=== PATIENT | female | born 1940 | race Caucasian/White ===

== ENCOUNTER 2018-09-21 14:51 | Emergency (ER) | payer OTHER, MEDICAID ==
[~2018-09-21] VITALS: Ht 152.4 cm; Wt 63.5 kg
[~2018-09-21 14:51] MED LIST: AMLO5TAB4 PO; BETA45CR3 TP; CLOP300T2 PO; DESV100T16 PO; DONE10TA44 PO; EZET10TA27 PO; LOSA100T3 PO; METO25TA3 PO; SITA100T11 PO
[2018-09-21 15:00] VITALS: BP_SYST 137
[2018-09-21] MEDS ORDERED: NACL 0.9% 1,000 ML IV ONE (15:23)
[2018-09-21 16:01] LABS: BLOOD, URINE 3+ (NEGATIVE); CLARITY/URINE SL CLOUDY (CLEAR); COLOR,URINE RED (YELLOW); GLUCOSE,URINE NEGATIVE (NEGATIVE); KETONES,URINE NEGATIVE (NEGATIVE); LEUKOCYTE ESTERASE ,URINE 3+ (NEGATIVE); NITRITE, URINE POSITIVE (NEGATIVE); PROTEIN URINE 2+ (NEGATIVE); UROBILINOGEN,URINE 0.2 (0.2-1.0)
[2018-09-21 16:04] LABS: BILIRUBIN,URINE NEGATIVE (NEGATIVE)
[2018-09-21 16:07] LABS: BACTERIA,URINE MANY /HPF (None Seen); MUCUS,URINE None Seen /LPF (None Seen); RBC,URINE >100 /HPF (0-3); WBC,URINE >100 /HPF (0-3)
[2018-09-21 16:16] LABS: ANION GAP 6 (5-15); CALCIUM 8.6 mg/dL (8.4-11.0); CHLORIDE 99 mmol/L (98-107); CREATININE 1.58 mg/dL (0.55-1.30); GLUCOSE 152 mg/dL (70-99); POTASSIUM 4.9 mmol/L (3.5-5.1); SODIUM SERUM 131 mmol/L (136-145); UREA NITROGEN, BLOOD 26 mg/dL (8-21)
[2018-09-21 16:18] LABS: ALANINE AMINOTRANSFERASE 23 U/L (12-78); ALBUMIN 3.2 g/dL (3.4-4.8); AMYLASE 46 U/L (0-100); ASPARTATE AMINOTRANSFERASE 15 U/L (10-37); HEMATOCRIT 34.5 % (36-48); HEMOGLOBIN 11.1 g/dL (12.0-16.0); LIPASE 376 U/L (73-393); PROTHROMBIN TIME 10.1 SECS (9.5-12.5); RED BLOOD CELL COUNT(AUTO) 3.99 MIL/uL (4.2-6.2); TOTAL BILIRUBIN 0.2 mg/dL (0.0-1.0); WHITE BLOOD COUNT (AUTO) 8.6 K/uL (4.8-10.8)
[2018-09-21 16:19] LABS: BASOPHILS # (AUTO) 0.1 K/uL (0.0-0.2); BASOPHILS % (AUTO) 0.7 % (0.0-2.0); EOSINOPHILS # (AUTO) 0.2 K/uL (0.0-0.4); EOSINOPHILS % (AUTO) 2.2 % (0.0-4.0); MEAN CORPUSCULAR HEMOGLOBIN 28 pg (27-31); MEAN CORPUSCULAR HGB CONC 32 % (32-36); MEAN CORPUSCULAR VOLUME 86 fL (79.0-98.0); MONOCYTES # (AUTO) 0.8 K/uL (0.0-1.0); MONOCYTES % (AUTO) 8.9 % (1.7-9.3); NEUTROPHILS # (AUTO) 5.6 K/uL (1.8-7.7); NEUTROPHILS % (AUTO) 65.2 % (40.0-70.0); PLATELET COUNT (AUTO) 328 K/uL (130-430); RED CELL DISTRIBUTION WIDTH 14.1 % (9.0-15.0)
[2018-09-21] MEDS ORDERED: cefTRIAXone 1 GM IVPB PREMIX 50 ML IV ONE (16:45)
[2018-09-21 17:30] VITALS: BP_SYST 130
== END 2018-09-21 17:30 | disposition home or self-care (01) ==
LOC: SED 14:51
DX: N30.81 Other cystitis with hematuria (principal); F03.90 Unspecified dementia, unspecified severity, without behavioral disturbance, psychotic disturbance, mood disturbance, and anxiety; E11.9 Type 2 diabetes mellitus without complications; I10 Essential (primary) hypertension; Z90.710 Acquired absence of both cervix and uterus; Z88.0 Allergy status to penicillin; Z79.899 Other long term (current) drug therapy
CPT/HCPCS: 36415; 80053; 81000; 82150; 83690; 85025; 85610; 85730; 87086; 87186; 96365; 99283; J0696; J7030

== ENCOUNTER 2018-09-25 12:17 | Inpatient (IN) | payer OTHER, MEDICAID ==
[~2018-09-25] VITALS: Ht 162.6 cm; Wt 61.2 kg
[2018-09-25 12:27] VITALS: BP_SYST 157
[2018-09-25] MEDS ORDERED: MEROPENEM 1 GM IVPB PREMIX 50 ML IV ONE (12:30)
[2018-09-25] MEDS ORDERED: NACL 0.9% 1,000 ML IV ONE ×2 (12:30→13:30)
[2018-09-25 13:10] LABS: ANION GAP 9 (5-15); CALCIUM 8.5 mg/dL (8.4-11.0); CHLORIDE 101 mmol/L (98-107); CREATININE 1.59 mg/dL (0.55-1.30); GLUCOSE 191 mg/dL (70-99); SODIUM SERUM 135 mmol/L (136-145); UREA NITROGEN, BLOOD 20 mg/dL (8-21)
[2018-09-25 13:14] LABS: ALANINE AMINOTRANSFERASE 25 U/L (12-78); ALBUMIN 3.2 g/dL (3.4-4.8); ASPARTATE AMINOTRANSFERASE 15 U/L (10-37); TOTAL BILIRUBIN 0.2 mg/dL (0.0-1.0)
[2018-09-25 13:26] LABS: WHITE BLOOD COUNT (AUTO) 5.6 K/uL (4.8-10.8)
[2018-09-25 13:27] LABS: HEMATOCRIT 32.5 % (36-48); HEMOGLOBIN 10.5 g/dL (12.0-16.0); MEAN CORPUSCULAR HEMOGLOBIN 28 pg (27-31); MEAN CORPUSCULAR HGB CONC 32 % (32-36); MEAN CORPUSCULAR VOLUME 87 fL (79.0-98.0); PLATELET COUNT (AUTO) 295 K/uL (130-430); RED BLOOD CELL COUNT(AUTO) 3.75 MIL/uL (4.2-6.2); RED CELL DISTRIBUTION WIDTH 14.2 % (9.0-15.0)
[2018-09-25 13:28] LABS: BASOPHILS # (AUTO) 0.1 K/uL (0.0-0.2); BASOPHILS % (AUTO) 0.9 % (0.0-2.0); EOSINOPHILS # (AUTO) 0.2 K/uL (0.0-0.4); EOSINOPHILS % (AUTO) 4.1 % (0.0-4.0); LYMPHOCYTES # (AUTO) 1.7 K/uL (1.0-5.5); LYMPHOCYTES % (AUTO) 30.7 % (20.5-51.5); MONOCYTES # (AUTO) 0.3 K/uL (0.0-1.0); MONOCYTES % (AUTO) 6.1 % (1.7-9.3); NEUTROPHILS # (AUTO) 3.3 K/uL (1.8-7.7); NEUTROPHILS % (AUTO) 58.2 % (40.0-70.0)
[2018-09-25] MEDS ORDERED: hydrALAZINE HCL 20 MG/ML VIAL IVP ONE (13:30)
[2018-09-25] MEDS ORDERED: CLOPIDOGREL BISULFATE 75 MG TABLET PO ONE (14:00)
[2018-09-25] MEDS ORDERED: DONEPEZIL HCL 5 MG TABLET (ARICEPT) PO ONE (14:00)
[2018-09-25] MEDS ORDERED: amLODIPine BESYLATE 5 MG TABLET PO ONE (14:00)
[2018-09-25] MEDS ORDERED: LOSARTAN POTASSIUM 50 MG TABLET (COZAAR) PO ONE (14:00)
[2018-09-25] MEDS ORDERED: cloNIDine HCL 0.1 MG TABLET PO PRN (14:00)
[2018-09-25] MEDS ORDERED: ENALAPRILAT DIHYDRATE 1.25 MG/ML VIAL IVP PRN (14:00)
[2018-09-25] MEDS ORDERED: METOPROLOL SUCCINATE 25 MG TAB.SR.24H (TOPROL XL) PO ONE (14:00)
[2018-09-25] MEDS ORDERED: hydrALAZINE HCL 20 MG/ML VIAL IVP PRN (14:00)
[2018-09-25] MEDS ORDERED: DEXTROSE 50% JECT 50 ML DISP.SYRIN IVP PRN (14:15)
[2018-09-25] MEDS ORDERED: INSULIN REGULAR, HUMAN 100 UNITS/ML, 10 ML VIAL (novoLIN R) SUBCUT PRN (14:15)
[2018-09-25 14:52] LABS: BILIRUBIN,URINE NEGATIVE (NEGATIVE); BLOOD, URINE 3+ (NEGATIVE); CLARITY/URINE SL CLOUDY (CLEAR); COLOR,URINE RED (YELLOW); GLUCOSE,URINE NEGATIVE (NEGATIVE); KETONES,URINE NEGATIVE (NEGATIVE); LEUKOCYTE ESTERASE ,URINE 3+ (NEGATIVE); PROTEIN URINE 1+ (NEGATIVE); UROBILINOGEN,URINE 0.2 (0.2-1.0)
[2018-09-25 15:20] LABS: NITRITE, URINE NEGATIVE (NEGATIVE); RBC,URINE >100 /HPF (0-3)
[2018-09-25 15:21] LABS: BACTERIA,URINE RARE /HPF (None Seen); MUCUS,URINE None Seen /LPF (None Seen); WBC,URINE 20-50 /HPF (0-3)
[2018-09-25 15:29] VITALS: BP_SYST 154
[2018-09-25 20:26] VITALS: BP_SYST 137
[2018-09-25] MEDS: METOPROLOL SUCCINATE 25 MG TAB.SR.24H (TOPROL XL) PO SCH (21:01)
[2018-09-25] MEDS: EZETIMIBE 10 MG TABLET PO SCH (21:01)
[2018-09-26 00:37] VITALS: BP_SYST 154
[2018-09-26] MEDS: ACETAMINOPHEN 325 MG TABLET PO PRN (01:50)
[2018-09-26 08:00] VITALS: BP_SYST 159
[2018-09-26] MEDS: DONEPEZIL HCL 5 MG TABLET (ARICEPT) PO SCH (09:07)
[2018-09-26] MEDS: amLODIPine BESYLATE 5 MG TABLET PO SCH (09:07)
[2018-09-26] MEDS: CLOPIDOGREL BISULFATE 75 MG TABLET PO SCH (09:07)
[2018-09-26] MEDS: METOPROLOL SUCCINATE 25 MG TAB.SR.24H (TOPROL XL) PO SCH ×2 (09:08→20:44)
[2018-09-26] MEDS: LOSARTAN POTASSIUM 50 MG TABLET (COZAAR) PO SCH (09:08)
[2018-09-26] MEDS ORDERED: COMMUNICATION ORDER XX ONE (09:15)
[2018-09-26] MEDS: ERTAPENEM SODIUM 0.5 GM in NS 50 ML IV SCH (10:52)
[2018-09-26 12:34] VITALS: BP_SYST 148
[2018-09-26 16:19] VITALS: BP_SYST 132
[2018-09-26 20:00] VITALS: BP_SYST 150
[2018-09-26] MEDS: EZETIMIBE 10 MG TABLET PO SCH (20:38)
[2018-09-26 23:24] VITALS: BP_SYST 160
[2018-09-27 01:03] VITALS: BP_SYST 131
[2018-09-27 08:00] VITALS: BP_SYST 121
[2018-09-27] MEDS: METOPROLOL SUCCINATE 25 MG TAB.SR.24H (TOPROL XL) PO SCH ×2 (09:16→20:11)
[2018-09-27] MEDS: DONEPEZIL HCL 5 MG TABLET (ARICEPT) PO SCH (09:16)
[2018-09-27] MEDS: CLOPIDOGREL BISULFATE 75 MG TABLET PO SCH (09:16)
[2018-09-27] MEDS: amLODIPine BESYLATE 5 MG TABLET PO SCH (09:17)
[2018-09-27] MEDS: ERTAPENEM SODIUM 0.5 GM in NS 50 ML IV SCH (09:17)
[2018-09-27] MEDS: LOSARTAN POTASSIUM 50 MG TABLET (COZAAR) PO SCH (09:17)
[2018-09-27 12:52] VITALS: BP_SYST 150
[2018-09-27 16:49] VITALS: BP_SYST 129
[2018-09-27] MEDS: EZETIMIBE 10 MG TABLET PO SCH (20:10)
[2018-09-27] MEDS: ACETAMINOPHEN 325 MG TABLET PO PRN (20:10)
[2018-09-27 20:11] VITALS: BP_SYST 145
[2018-09-28] MEDS: ACETAMINOPHEN 325 MG TABLET PO PRN (00:15)
[2018-09-28 01:19] VITALS: BP_SYST 153
[2018-09-28 08:00] VITALS: BP_SYST 152
[2018-09-28] MEDS: DONEPEZIL HCL 5 MG TABLET (ARICEPT) PO SCH (08:40)
[2018-09-28] MEDS: METOPROLOL SUCCINATE 25 MG TAB.SR.24H (TOPROL XL) PO SCH ×2 (08:40→20:06)
[2018-09-28] MEDS: LOSARTAN POTASSIUM 50 MG TABLET (COZAAR) PO SCH (08:40)
[2018-09-28] MEDS: amLODIPine BESYLATE 5 MG TABLET PO SCH (08:41)
[2018-09-28] MEDS: CLOPIDOGREL BISULFATE 75 MG TABLET PO SCH (08:41)
[2018-09-28] MEDS: ERTAPENEM SODIUM 0.5 GM in NS 50 ML IV SCH (09:55)
[2018-09-28 12:02] VITALS: BP_SYST 163
[2018-09-28] MEDS ORDERED: QUEtiapine FUMARATE 25 MG TABLET PO ONE (12:45)
[2018-09-28 13:00] LABS: BASOPHILS % (AUTO) 0.5 % (0.0-2.0); EOSINOPHILS # (AUTO) 0.1 K/uL (0.0-0.4); EOSINOPHILS % (AUTO) 2.4 % (0.0-4.0); HEMATOCRIT 36.3 % (36-48); HEMOGLOBIN 11.7 g/dL (12.0-16.0); LYMPHOCYTES # (AUTO) 1.5 K/uL (1.0-5.5); LYMPHOCYTES % (AUTO) 28.3 % (20.5-51.5); MEAN CORPUSCULAR HEMOGLOBIN 28 pg (27-31); MEAN CORPUSCULAR HGB CONC 32 % (32-36); MEAN CORPUSCULAR VOLUME 85 fL (79.0-98.0); MONOCYTES # (AUTO) 0.4 K/uL (0.0-1.0); MONOCYTES % (AUTO) 7.1 % (1.7-9.3); NEUTROPHILS # (AUTO) 3.4 K/uL (1.8-7.7); NEUTROPHILS % (AUTO) 61.7 % (40.0-70.0); PLATELET COUNT (AUTO) 329 K/uL (130-430); RED BLOOD CELL COUNT(AUTO) 4.26 MIL/uL (4.2-6.2); RED CELL DISTRIBUTION WIDTH 13.1 % (9.0-15.0); WHITE BLOOD COUNT (AUTO) 5.4 K/uL (4.8-10.8)
[2018-09-28 13:10] LABS: ANION GAP 7 (5-15); CHLORIDE 103 mmol/L (98-107); CREATININE 1.38 mg/dL (0.55-1.30); GLUCOSE 163 mg/dL (70-99); POTASSIUM 4.9 mmol/L (3.5-5.1); SODIUM SERUM 137 mmol/L (136-145); UREA NITROGEN, BLOOD 22 mg/dL (8-21)
[2018-09-28] MEDS: QUEtiapine FUMARATE 25 MG TABLET PO SCH (18:28)
[2018-09-28 18:30] VITALS: BP_SYST 145
[2018-09-28 20:00] VITALS: BP_SYST 157
[2018-09-28] MEDS: EZETIMIBE 10 MG TABLET PO SCH (20:06)
[2018-09-29 00:24] VITALS: BP_SYST 127
[2018-09-29 08:00] VITALS: BP_SYST 138
[2018-09-29] MEDS: CLOPIDOGREL BISULFATE 75 MG TABLET PO SCH (09:49)
[2018-09-29] MEDS: DONEPEZIL HCL 5 MG TABLET (ARICEPT) PO SCH (09:49)
[2018-09-29] MEDS: LOSARTAN POTASSIUM 50 MG TABLET (COZAAR) PO SCH (09:50)
[2018-09-29] MEDS: amLODIPine BESYLATE 5 MG TABLET PO SCH (09:51)
[2018-09-29] MEDS: METOPROLOL SUCCINATE 25 MG TAB.SR.24H (TOPROL XL) PO SCH ×2 (09:51→20:59)
[2018-09-29] MEDS: ERTAPENEM SODIUM 0.5 GM in NS 50 ML IV SCH (10:10)
[2018-09-29 11:56] VITALS: BP_SYST 142
[2018-09-29 16:01] VITALS: BP_SYST 143
[2018-09-29] MEDS: metroNIDAZOLE 500 mg/NS 100 ML IV SCH ×2 (16:55→22:32)
[2018-09-29] MEDS: QUEtiapine FUMARATE 25 MG TABLET PO SCH (17:56)
[2018-09-29 20:00] VITALS: BP_SYST 151
[2018-09-29] MEDS: EZETIMIBE 10 MG TABLET PO SCH (20:59)
[2018-09-29] MEDS: ACETAMINOPHEN 325 MG TABLET PO PRN (21:03)
[2018-09-30 00:07] VITALS: BP_SYST 137
[2018-09-30] MEDS: metroNIDAZOLE 500 mg/NS 100 ML IV SCH ×2 (05:28→15:29)
[2018-09-30 07:57] VITALS: BP_SYST 144
[2018-09-30] MEDS: amLODIPine BESYLATE 5 MG TABLET PO SCH (09:10)
[2018-09-30] MEDS: DONEPEZIL HCL 5 MG TABLET (ARICEPT) PO SCH (09:10)
[2018-09-30] MEDS: LOSARTAN POTASSIUM 50 MG TABLET (COZAAR) PO SCH (09:10)
[2018-09-30] MEDS: METOPROLOL SUCCINATE 25 MG TAB.SR.24H (TOPROL XL) PO SCH (09:11)
[2018-09-30] MEDS: CLOPIDOGREL BISULFATE 75 MG TABLET PO SCH (09:11)
[2018-09-30 13:15] VITALS: BP_SYST 134
[2018-09-30 16:32] VITALS: BP_SYST 159
[2018-09-30 17:25] VITALS: BP_SYST 159
== END 2018-09-30 18:14 | DRG 689 ==
LOC: SED 12:17 → SMU 13:58
PROVIDERS: ADMIT Internal Medicine Hospice and Palliative Medicine; ATTEND Internal Medicine Hospice and Palliative Medicine
DX: N39.0 Urinary tract infection, site not specified (principal); N17.0 Acute kidney failure with tubular necrosis; E11.9 Type 2 diabetes mellitus without complications; I10 Essential (primary) hypertension; B96.20 Unspecified Escherichia coli [E. coli] as the cause of diseases classified elsewhere; B96.4 Proteus (mirabilis) (morganii) as the cause of diseases classified elsewhere; I25.10 Atherosclerotic heart disease of native coronary artery without angina pectoris; N76.0 Acute vaginitis; Z16.12 Extended spectrum beta lactamase (ESBL) resistance; D64.9 Anemia, unspecified; F03.90 Unspecified dementia, unspecified severity, without behavioral disturbance, psychotic disturbance, mood disturbance, and anxiety; Z78.9 Other specified health status; Z86.73 Personal history of transient ischemic attack (TIA), and cerebral infarction without residual deficits; Z87.440 Personal history of urinary (tract) infections; Z95.1 Presence of aortocoronary bypass graft; Z88.0 Allergy status to penicillin; Z79.899 Other long term (current) drug therapy
CPT/HCPCS: 36415; 76856-TC; 80048; 80053; 81000-TC; 82962; 83605; 85025; 87040-TC; 87081; 87086; 96361; 96365; 97116-GP; 97530-GP; 99285; J1335; J1815; J2185; J3490